=== PATIENT | female | born 1985 | race Caucasian/White ===

== ENCOUNTER 2023-01-19 09:03 | Emergency (ER) | payer BC, SELFPAY ==
[2023-01-19 09:12] VITALS: BP 131/77; PULSE 75; RESP 16; TEMP 37.6; O2SAT 100
--- NOTE | 2023-01-19 09:50 | ED.EYEPROB ---
HPI - Eye Problem General Chief complaint: Eye Problems Stated complaint: Swollen Left Eye Time Seen by Provider: 01/19/23 09:50 History of Present Illness HPI Narrative: Patient presents with swelling to left eyelid. Patient states this started 2 days ago. Patient states she was out in the garden and thinks she might have been stung by something. No rash no itching. Patient states her eye was also swollen shut this morning and matted shut. No vision problems no pain dye. Related Data Home Medications Medication Instructions Recorded Confirmed levothyroxine 175 mcg tablet 175 mcg PO DAILY 01/19/23 01/19/23 Allergies Allergy/AdvReac Type Severity Reaction Status Date / Time cefazolin Allergy Unknown Rash Verified 01/19/23 09:35 cefprozil Allergy Unknown Unknown Verified 01/19/23 09:35 Bumble Bee Allergy Unknown Swelling Uncoded 04/02/19 12:49 Review of Systems Review of Systems: CONSTITUTIONAL: Denies fever, chills, or sweats. EYES: Denies visual changes, redness, or discharge. ENT: Denies rhinorrhea, congestion, sore throat, or otalgia. CARDIOVASCULAR: Denies chest pain, palpitations, or edema. RESPIRATORY: Denies cough or dyspnea. GASTROINTESTINAL: Denies abdominal pain, nausea, vomiting, or diarrhea. GENITOURINARY: Denies dysuria or hematuria. SKIN: Denies rash or itching. MUSCULOSKELETAL: Denies back pain, joint pain, or myalgia. NEUROLOGIC: Denies headache, numbness, or weakness. PSYCHIATRIC: Denies anxiety or depression. [facility] Family History Family History (Updated 03/11/12 @ 13:31 by DOCTOR UNKNOWN) Other Family history of malignant neoplasm of male breast Hypertension Social History Social History Smoking status: Never smoker Alcohol intake: current Comments At time of signature, agree with nursing past medical, surgical, social and family history. There is no relevant family history pertinent to the presenting complaint Exam Narrative: GENERAL: Well-appearing, well-nourished, and in no acute distress. HEAD: Normocephalic, atraumatic. EYES: PERRLA and EOMI. Slight swelling to left eyelid. Scant amount of drainage to corner of eye Conjunctivitis follow up with eye doctor in 24-48 hours To left conjunctiva ENT: Nares clear, no rhinorrhea or epistaxis. Mucous membranes moist. NECK: Supple. CHEST: Clear to auscultation. No respiratory distress. HEART: Regular rate and rhythm. No murmur heard. Normal peripheral pulses. ABDOMEN: Soft, nontender, nondistended, normal active bowel sounds. EXTREMITIES: Normal range of motion. No edema. SKIN: Warm, dry, no rash. NEURO: No focal deficits. Alert and oriented x3. [place] Coma Scale Eye Opening: Spontaneous 4 [place] Coma Scale Motor: Obeys Commands 6 [place] Coma Scale Verbal: Oriented 5 [place] Coma Scale Total 15 Course Course Level of Care: Express Care Visit Vital Signs Vital signs: Vital Signs Temperature 37.6 C 01/19/23 09:12 Pulse Rate 75 01/19/23 09:12 Respiratory Rate 16 01/19/23 09:12 Blood Pressure 131/77 01/19/23 09:12 Pulse Oximetry 100 01/19/23 09:12 Oxygen Delivery Room Air 01/19/23 09:12 Temperature 37.6 C 01/19/23 09:12 Pulse Rate 75 01/19/23 09:12 Respiratory Rate 16 01/19/23 09:12 Blood Pressure 131/77 01/19/23 09:12 Pulse Oximetry 100 01/19/23 09:12 Oxygen Delivery Room Air 01/19/23 09:12 Please SELMA schedule a followup visit with your personal physician for further evaluation and treatment. Including recheck and discussion of your blood pressure. If your symptoms persist, change or worsen significantly before you can contact your personal physician then please, without delay, go to the emergency department for further evaluation Discharge Plan Discharge Clinical Impression: Bacterial conjunctivitis, Swelling of left eyelid Patient Disposition: Home, Self-Care Condition: Stable Instructions: Antibiotic Form, Conjunctivitis (ED) Additional Instruc
== END 2023-01-19 09:58 | disposition home or self-care (01) ==
PROVIDERS: Emergency Provider Nurse Practitioner Family
DX: H10.9 Unspecified conjunctivitis (principal); E89.0 Postprocedural hypothyroidism
CPT/HCPCS: 99213; G0463